=== PATIENT | female | born 1960 | race Caucasian/White ===

== ENCOUNTER 2016-11-18 10:01 | Inpatient (IN) | payer OTHER ==
--- NOTE | 2016-11-18 06:45 | PDHPUP ---
History & Physical Update H&P update statement: This history and physical update is based on an assessment of the patient which was completed after admission or registration (within 24 hours), but prior to the surgery/procedure. H&P update: H&P reviewed & patient examined, no change in patient's condition since H&P completed
[2016-11-18] MEDS ORDERED: ceFAZolin 2 GM/DEXTROSE 100 ML IV ONE (10:22)
[2016-11-18] MEDS ORDERED: LIDOCAINE 1% 2 ML INJ ONE (10:37)
[2016-11-18] MEDS ORDERED: MIDAZOLAM 2 MG/2 ML VIAL IVP ONE ×2 (10:37→10:45)
--- NOTE | 2016-11-18 10:37 | PDANEPAE ---
ANE History of Present Illness 56 year old female presents for TLIF. ANE Past Medical History - Cardiovascular History Hx Hypertension: Yes Hx Arrhythmias: No Hx Chest Pain: No Hx Coronary Artery / Peripheral Vascular Disease: No Hx CHF / Valvular Disease: No Hx Palpitations: No Cardiovascular History Comment: MEDICATION INDUCED HTN. - Pulmonary History Hx COPD: No Hx Asthma/Reactive Airway Disease: No Hx Recent Upper Respiratory Infection: No Hx Oxygen in Use at Home: No Hx Sleep Apnea: Yes Sleep Apnea Screening Result - Last Documented: Positive Pulmonary History Comment: CPAP WITHOUT 02 BLEED - Neurologic History Hx Cerebrovascular Accident: No Hx Seizures: No Hx Dementia: No - Endocrine History Hx Diabetes: No Hypothyroid: No Hyperthyroid: No Obesity: moderate - Renal History Hx Renal Disorders: No - Liver History Hx Hepatic Disorders: No - Neurological & Psychiatric Hx Hx Neurological and Psychiatric Disorders: Yes Neurological / Psychiatric History Comment: DEPRESSION, ANXIETY - Cancer History Hx Cancer: No - Congenital Disorder History Hx Congenital Disorders: No - GI History GERD: no Hx Gastrointestinal Disorders: No Gastrointestinal History Comment: OPIATE INDUCED CONSTIPATION - Other Health History Other Health History: BRUISES EASILY - Chronic Pain History Chronic Pain: Yes (BOTH KNEES, PINKY FINGER ON RIGHT) - Surgical History Prior Surgeries: NERVE ABLATION, COLONOSCOPY,. SCOPE WITH BIOPSY. ANE Review of Systems Review of systems is: negative Review of Systems: - Exercise capacity Exercise capacity: >=4 METS METS (RN): 4 METS ANE Patient History - Allergies Allergies/Adverse Reactions: No Known Allergies Allergy (Unverified 11/03/16 14:30) - Home Medications Home medications: home medication list seen and reviewed Home Medications: Acetamn/Diphenhydramine 500/25 [Tylenol PM (*)] 2 each PO HS 11/03/16 [Last Taken 11/17/16] Calcium Carbonate/Vitamin D3 [CALCIUM 600 + VIT D TABLET] 1 each PO BID [Last Taken 11/12/16] DULoxetine [Cymbalta 60 MG (*)] 60 mg PO TID 11/03/16 [Last Taken 11/18/16 07:20 ] Glucosamine/Chondroitin [Glucosamine/Chondroitin (*)] 1 each PO BID 11/03/16 [ Last Taken 11/12/16] Ibuprofen [Motrin (*)] 800 mg PO TID PRN 11/03/16 [Last Taken 11/12/16] Levothyroxine [Synthroid 50 mcg (*)] 50 mcg PO DAILY06 11/03/16 [Last Taken 07:20] Lisinopril [Zestril 10 mg (*)] 10 mg PO DAILY 11/03/16 [Last Taken 11/17/16] Multivitamins [Multivitamin (*)] 1 each PO DAILY 11/03/16 [Last Taken 11/12/16] RX: Herbals/Supplements -Info Only 1 ea PO DAILY 11/03/16 [Last Taken 11/12/16] Vitamin B Complex [B Complex] 1 each PO DAILY 11/03/16 [Last Taken 11/12/16] oxyCODONE CR [Oxycontin] 20 mg PO BID 11/03/16 [Last Taken 11/18/16 07:20] oxyCODONE/APAP 5/325 [Percocet 5/325 (*)] 1 tab PO TID PRN 11/03/16 [Last Taken 11/18/16 07:20] - NPO status NPO Status: no food or drink >8 hours - Anes Hx Anes Hx: no prior problems - Smoking Hx Smoking Status: Never smoked - Alcohol Use Alcohol Use: Rarely - Family Anes Hx Family Anes Hx: neg - N/A Family Hx Anesthesia Complications: MOTHER WITH EMPHYSEMA, HARD TO WAKE UP. ANE Labs/Vital Signs - Vital Signs Vital Signs: reviewed preoperatively; see RN documention for details Height: 157.48 cm Weight: 79.379 kg ANE Physical Exam - Airway Neck exam: FROM Mallampati Score: Class 2 Mouth exam: dentures - Pulmonary Pulmonary: no respiratory distress - Cardiovascular Cardiovascular: regular rate and rhythym - ASA Status ASA Status: III ANE Anesthesia Plan Anesthesia Plan: general endotracheal anesthesia Total IV Anesthesia: No
[2016-11-18] MEDS ORDERED: LIDOCAINE 1% 2 ML INJ ID PRN (10:39)
[2016-11-18] MEDS ORDERED: LR 1,000 ML IV ONE (10:39)
[2016-11-18] MEDS ORDERED: BISACODYL 10 MG SUPP PR PRN (11:22)
[2016-11-18] MEDS ORDERED: MAGNESIUM HYDROXIDE 30 ML UDCUP PO PRN (11:22)
[2016-11-18] MEDS ORDERED: ACETAMINOPHEN 325 MG TAB PO PRN (11:22)
[2016-11-18] MEDS ORDERED: LACTULOSE 20 GM/30 ML UDCUP PO PRN (11:22)
[2016-11-18] MEDS ORDERED: ONDANSETRON DISINTEGRATING 4 MG TAB PO PRN (11:22)
[2016-11-18] MEDS ORDERED: diphenhydrAMINE 25 MG CAP PO PRN (11:22)
[2016-11-18] MEDS ORDERED: ONDANSETRON 4 MG/2 ML VIAL IVP PRN ×2 (11:22→14:31)
[2016-11-18] MEDS ORDERED: NALOXONE HCL 0.4 MG/ML INJ IVP PRN ×2 (11:22→14:31)
[2016-11-18] MEDS ORDERED: CHLORHEXIDINE GLUC HIBICLENS 118 ML BTL TP ONE (11:31)
[2016-11-18] MEDS ORDERED: THROMBIN (BOVINE) 5,000 UNIT VIAL TP ONE (11:32)
[2016-11-18] MEDS ORDERED: BUPIVACAINE 0.25% 30 ML SDV ONE (11:32)
[2016-11-18] MEDS ORDERED: BACITRACIN 50,000 UNITS/10 ML SYR IRR ONE (11:33)
[2016-11-18] MEDS ORDERED: fentaNYL 100 MCG/2 ML INJ ONE ×3 (11:37→18:05)
[2016-11-18] MEDS ORDERED: PROPOFOL/EMULSION 500 MG/50 ML BOTTLE IV ONE ×3 (11:37→14:37)
[2016-11-18] MEDS ORDERED: PROPOFOL 200 MG/20 ML VIAL ONE (11:37)
[2016-11-18] MEDS ORDERED: LIDOCAINE 2% 5 ML SDV ONE (11:51)
[2016-11-18] MEDS ORDERED: ROCURONIUM 50 MG/5 ML VIAL ONE (11:51)
[2016-11-18] MEDS ORDERED: KETAMINE 100 MG/10 ML SYR ONE (12:11)
[2016-11-18] MEDS ORDERED: DEXAMETHASONE 4 MG/ML VIAL ONE (12:13)
[2016-11-18] MEDS ORDERED: HYDROmorphONE/DILAUDID 2 MG/ML INJ ONE (14:23)
[2016-11-18] MEDS ORDERED: OXYCODONE/APAP 5/325 TAB PO PRN (14:31)
[2016-11-18] MEDS ORDERED: LR 500 ML IV PRN (14:31)
[2016-11-18] MEDS ORDERED: LABETALOL HCL 5 MG/ML 20 ML MDV ONE (15:00)
[2016-11-18] MEDS ORDERED: ONDANSETRON 4 MG/2 ML VIAL ONE (16:25)
[2016-11-18] MEDS ORDERED: SUGAMMADEX SODIUM 200 MG/2 ML VIAL IVP ONE (16:34)
--- NOTE | 2016-11-18 17:07 | SOAPPROG ---
SOAP Progress Note Assessment/Plan: Post Op Visit: S: Awake and alert. PT with expected lower back pain O: AFVSS/PERRLA/EOMI no droop CN 2-12 grossly intact +lt touch 5/5 BUE/BLE = CDI MARYJANE in place A/P: 56 yo female that is s/p TLIF at L3/4 and L4/5 -orders in place -call with any questions or concerns -pt seen by Dr Saez as well -orders in place -brace when out of bed -xrays in am 11/18/16 17:01 Objective: Vital Signs Temp Pulse Resp BP Pulse Ox 36.6 C 81 16 131/88 H 95 11/18/16 10:22 11/18/16 10:22 11/18/16 10:22 11/18/16 10:22 11/18/16 10:22 ICD10 Worksheet Patient Problems: Problems Problem Status Onset Arthrodesis status Acute Lumbago Acute Lumbago with sciatica Acute Lumbar radicular pain Acute Lumbar stenosis Acute - ICD10 Problem Qualifiers (1) Lumbar stenosis (2) Lumbar radicular pain (3) Lumbago Qualifiers: Chronicity: unspecified Back pain laterality: bilateral Sciatica presence : with sciatica Sciatica laterality: sciatica of right side Qualified Code(s ): M54.41 - Lumbago with sciatica, right side (4) Lumbago with sciatica Qualifiers: Chronicity: unspecified Back pain laterality: bilateral Sciatica laterality: sciatica of right side Qualified Code(s): M54.41 - Lumbago with sciatica, right side (5) Arthrodesis status
[2016-11-18] MEDS ORDERED: DIAZEPAM 10 MG/2 ML SYR ONE (17:18)
[2016-11-18] MEDS: fentaNYL 100 MCG/2 ML INJ IVP PRN ×4 (17:20→18:39)
[2016-11-18] MEDS: DIAZEPAM 10 MG/2 ML SYR IVP PRN ×2 (17:24→17:51)
[2016-11-18] MEDS ORDERED: HYDROmorphONE/DILAUDID 1 MG/ML INJ ONE ×2 (18:13→18:53)
[2016-11-18] MEDS: HYDROmorphONE/DILAUDID 1 MG/ML INJ IVP PRN ×5 (18:17→19:45)
[2016-11-18] MEDS ORDERED: OXYCODONE/APAP 5/325 TAB ONE (19:02)
--- NOTE | 2016-11-18 20:05 | POSTANESTH ---
Post Anesthetic Evaluation Cardiovascular Status: Normal, Stable, Similar to Pre-Op Cond Respiratory Status: Normal, Stable, Similar to Pre-op Cond. Level of Consciousness/Mental Status: Can Participate in Eval, Alert and Oriented Pain Control: Adequate, Prn Tx Ordered Nausea/Vomiting Control: Adequate, Prn Tx Ordered Complications Possibly Related to Anesthesia: None Noted
[2016-11-18] MEDS: HYDROmorphONE/DILAUDID 6 MG/30 ML PCA IV PRN (21:32)
[2016-11-18] MEDS: POLYETHYLENE GLYCOL 3350 17 GM PKT PO PRN (21:33)
[2016-11-18] MEDS: METHOCARBAMOL 750 MG in NS 50 ML IV SCH (21:33)
[2016-11-18] MEDS: ACETAMN/DIPHENHYDRAMINE 500/25MG TAB PO SCH (21:33)
[2016-11-18] MEDS: FAMOTIDINE 20 MG TAB PO SCH (21:34)
[2016-11-18] MEDS: DULoxetine 60 MG CAP PO SCH (21:34)
[2016-11-18] MEDS: SENNOSIDES/DOCUSATE SODIUM TAB PO SCH (21:34)
[2016-11-18] MEDS: NS 1,000 ML IV SCH (21:43)
[2016-11-18] MEDS: oxyCODONE IR 5 MG TAB PO PRN (23:21)
[2016-11-19] MEDS: ceFAZolin 2 GM/DEXTROSE 100 ML IV SCH ×2 (00:50→05:46)
[2016-11-19] MEDS: DIAZEPAM 5 MG TAB PO PRN ×3 (02:42→16:53)
--- NOTE | 2016-11-19 03:42 | GOP ---
[f rep st] OPERATIVE REPORT DATE OF OPERATION: 11/18/2016 SURGEON: Peter Saez MD 5TH GRADE TEACHER: Ap Reinoso PA-C. PREOPERATIVE DIAGNOSIS: 1. Lumbar scoliosis with severe right foraminal stenosis, L3-4, severe left foraminal stenosis, L4-5 , moderately severe right foraminal stenosis, L4-5. 2. Lumbar spondylosis. 3. Lumbar degenerative disk disease, L3-4, L4-5. 4. There were also other multilevel findings of lumbar spine. She had right L3 radiculopathy and le ft L4 radiculopathy, axial low back pain, lumbar degenerative disk disease. POSTOPERATIVE DIAGNOSIS: 1. Lumbar scoliosis with severe right foraminal stenosis, L3-4, severe left foraminal stenosis, L4-5 , moderately severe right foraminal stenosis, L4-5. 2. Lumbar spondylosis. 3. Lumbar degenerative disk disease, L3-4, L4-5. 4. There were also other multilevel findings of lumbar spine. She had right L3 radiculopathy and le ft L4 radiculopathy, axial low back pain, lumbar degenerative disk disease. PROCEDURE PERFORMED: 1. Posterolateral and intervertebral arthrodesis, L3-4, L4-5 (44962, 93327). 2. Segmental spinal instrumentation, L3-L4-L5 (00885). 3. Placement of biomechanical intervertebral device, L3-4, L4-5 (09923). 4. Microscope, spinal stereotaxy. FINDINGS: ESTIMATED BLOOD LOSS: 250 cc. INDICATIONS: The patient is a 56-year-old female with terrible axial low back pain and radiating valeria n into the right leg in an L3-type distribution, as well as some radiating pain on the left in an L4- type distribution, but the right was greater than the left. She had a degenerative scoliotic curve w ith incompetent facet joints at the L4-5 level. She also had a terrible degenerative disk disease an d a degenerative scoliotic curve at L3-4, with compression of the exiting L3 nerve root in the neural foramen at that level. I suggested a 2-level TLIF with decompression on the right at L3-4 and the l eft at L4-5. She had other findings in the lumbar spine including a small right paracentral disk her niation at L5-S1 that was noncompressive, and she understood that in time she may develop the need fo r additional surgery in the future. The concept of adjacent segment disease was discussed. She knew there was a risk of nerve injury, spinal fluid leak, pseudoarthrosis, as well as the possibility of surgery that failed to alleviate her pain. She knew there were small risks of infection and a spinal fluid leak. She wanted to proceed, despite these risks. DESCRIPTION OF PROCEDURE: The patient was taken to the operating room, placed in supine position. G eneral anesthesia was begun. She was flipped prone on the Denis table. Care was taken to pad all points of contact. Her back was sterilely prepped and draped in the usual fashion. A localizing x-r ay was taken. We made a midline incision from the spinous process of L2 down to the spinous process of L5. The subcutaneous tissue was dissected using Bovie cautery down to the fascia and a subperiost eal dissection was made down the lamina of L2, 3, 4, and 5. A localizing x-ray was taken. We denude d the bilateral facet joints at L3-4, L4-5. We preserved the L2-3 facet joints. We attached the Gm [facility] reference frame and using frameless Stealth stereotaxy, we placed pedicle screws bilaterally at L3, L4, and L5. They all stimulated at 20 milliamps or greater. We performed an O-arm spin of the l eft L5 pedicle screw. I had an excellent entry point, but then the screw existed at the distal porti on of the pedicle of the lateral vertebral body, and we elected to replace this screw. We simply rem heaven it, shot a pre-replacement AP x-ray and a post-replacement AP x-ray. We began the screw in a sl ightly medial position and using frameless Stealth stereotaxy, we placed the screw in the left L5 ped icle and that stimulated at 20 milliamps. There was excellent bony purchase. A final x-ray was take n and the screw was in excellent position. We then placed an 80 mm derik down on the left and chose a 70 mm derik on the right. We distracted on the right at L3-4 and on the left at L4-5. We reduced her scoliotic curve. We final tightened the cap screws according to company specification. We removed a ll the soft tissue of the bone at L3, L4, and L5. We then harvested the L4 spinous process for autol ogous grafting purposes and the inferior L3 spinous process for autologous grafting purposes. Under the operating microscope, we drilled a right hemilaminectomy of L3 and a left hemilaminectomy of L4. We harvested this bone for autologous grafting purposes. We opened the posterior longitudinal ligam ent and under the microscope, we decompressed the lateral thecal sac at L4-5 on the left-hand side an d performed a complete left L4-5 facetectomy, decompressing the exiting L4 nerve root at that level. We worked our way rostrally to the L3-4 level, where we performed a right hemilaminectomy of L3 and then performed a complete right L3-4 facetectomy and decompressed the exiting L3 nerve root at that l evel. We then incised the L4-5 disk from the left-hand side, removed the disk. The cartilaginous en dplates roughened the subchondral bone to create arthrodesis at that level, and then chose a 7 x 23 m m device for L4-5. We then did likewise from the right at L3-4, where we incised the disk, removed t he disk and the cartilaginous endplates. We roughened the subchondral bone to create arthrodesis at that level. Here, too, we chose a 7 x 23 mm device and under fluoroscopic guidance, we put _ devices into the disk spaces at L3-4, L4-5 along with a lot of bone autograft, as well as BMP spong e. We used a grand total of 4 mg of BMP for the entire surgery. We placed 2 mg into the ventral por tion of the spine and 2 mg posterolaterally. We decorticated all our remaining bone posterolaterally bilaterally. We had relaxed our distraction between L3 and L4 to increase lordosis at that level. We final tightened the cap screws according to company specification, finished our decortication, katia zeyad bone posterolaterally bilaterally at L3-4 as well as BMP, and a subfascial drain. We then closed the incision in multiple layers using Vicryl sutures. A running PDS was placed in the skin itself. There were no complications. The patient tolerated the procedure. COMPLICATIONS: None. INSTRUMENTATION USED: Gopeersra 5.5 mm system with 7 x 23 mm Elevate cage. Used an 80 mm derik on the left and a 70 mm derik on the right. /[id number]/MODL
[2016-11-19] MEDS: oxyCODONE IR 5 MG TAB PO PRN ×4 (03:51→20:05)
[2016-11-19 05:37] LABS: % IMMATURE GRANULYOCYTES 0.6 % (0.0-1.1); ABSOLUTE IMMATURE GRANULOCYTES 0.06 10^3/uL (0.00-0.10); ADD DIFF? NO; ADD MORPH? NO; ADD SCAN? NO; ATYPICAL LYMPHOCYTE FLAG 10 (0-99); FRAGMENT RBC FLAG 0 (0-99); HEMATOCRIT 33.9 % (38.0-47.0); HEMOGLOBIN 11.2 g/dL (12.6-16.3); LEFT SHIFT FLG 10 (0-99); LIPEMIA HEMOLYSIS FLAG 80 (0-99); MEAN CELL HEMOGLOBIN 32.1 pg (27.9-34.1); MEAN CELL VOLUME 97.1 fL (81.5-99.8); PLATELET CLUMPS FLAG 10 (0-99); PLATELET COUNT 301 10^3/uL (150-400); RED BLOOD CELL COUNT 3.49 10^6/uL (4.18-5.33); RED CELL DISTRIBUTION WIDTH 12.3 % (11.5-15.2)
[2016-11-19] MEDS: HYDROmorphONE/DILAUDID 6 MG/30 ML PCA IV PRN ×2 (05:40→19:39)
[2016-11-19] MEDS: LEVOTHYROXINE 50 MCG TAB PO SCH (05:47)
[2016-11-19] MEDS: METHOCARBAMOL 750 MG in NS 50 ML IV SCH (05:47)
[2016-11-19 05:51] LABS: ANION GAP 10 mEq/L (8-16); CALCIUM 8.9 mg/dL (8.5-10.4); CARBON DIOXIDE 24 mEq/l (22-31); CHLORIDE 105 mEq/L (97-110); CREATININE 0.6 mg/dL (0.6-1.0); GLOMERULAR FILTRATION RATE > 60; GLUCOSE 111 mg/dL (70-100); POTASSIUM 4.1 mEq/L (3.5-5.2); SODIUM 139 mEq/L (134-144)
[2016-11-19] MEDS ORDERED: PHARMACY PAIN CONSULT 1 EA MISC SCH (08:00)
--- NOTE | 2016-11-19 08:04 | NEUSURGPN ---
Date of Surgery: 11/18/16 Post Op Day: 1 Assessment/Plan: Assessment: 56 yo female that is s/p TLIF at L3/4 and L4/5 POD #1 Plan: -s/p TLIF: pt with expected lower back pain, leg a bit better -pt with continued pain issues -on MANAGEMENT DEVELOPMENT SPECIALIST, increased Oxycontin to TID, continue with Robaxin/Valium -pharmacy pain consult ordered -brace when out of bed -MARYJANE to be removed this am -CDI -orders in place -call with any questions or concerns -pt seen by Dr Saez as well -xrays pending this am -rash under panus-started on lotrimin cream 11/18/16 17:01 Subjective: Awake and alert. Pt with continued back pain. No urbano/neck/chest/abd or gu complaints. She has a rash under her panus Objective: AFVSS/PERRLA/EOMI no droop CN 2-12 grossly intact +lt touch 5/5 BUE/BLE = CDI MARYJANE in place-to be removed Neuro Check Frequency: per routine Urinary Catheter in Place: No - Physician Discussed Patient with Dr.: Se Patient Seen by : Se Neurosurgery Physical Exam - Vitals, I&O, Labs I and O 11/18/16 11/19/16 11/20/16 05:59 05:59 05:59 Intake Total 2225 Output Total 3615 Balance -1390 Weight 79.379 kg Intake: Oral (ml) 725 IV Intake (ml) 1500 Output: Urine (ml) 3325 Catheter 3325 MARYJANE Drain Output (ml) 290 Back Denis Novak 290 Other: Intake Quantity Yes Sufficient Vital Signs Temp Pulse Resp BP Pulse Ox 37.1 C 95 16 111/79 93 11/19/16 06:00 11/19/16 06:00 11/19/16 06:00 11/19/16 06:00 11/19/16 06:00 Laboratory Results 11/19/16 05:13 11/19/16 05:13 ICD10 Worksheet Patient Problems: Problems Problem Status Onset Arthrodesis status Acute Lumbago Acute Lumbago with sciatica Acute Lumbar radicular pain Acute Lumbar stenosis Acute - ICD10 Problem Qualifiers (1) Lumbar stenosis (2) Lumbar radicular pain (3) Lumbago Qualifiers: Chronicity: unspecified Back pain laterality: bilateral Sciatica presence : with sciatica Sciatica laterality: sciatica of right side Qualified Code(s ): M54.41 - Lumbago with sciatica, right side (4) Lumbago with sciatica Qualifiers: Chronicity: unspecified Back pain laterality: bilateral Sciatica laterality: sciatica of right side Qualified Code(s): M54.41 - Lumbago with sciatica, right side (5) Arthrodesis status
[2016-11-19] MEDS ORDERED: ACETAMINOPHEN 325 MG TAB PO SCH (08:45)
[2016-11-19] MEDS: SENNOSIDES/DOCUSATE SODIUM TAB PO SCH ×2 (08:56→20:06)
[2016-11-19] MEDS: LISINOPRIL 10 MG TAB PO SCH (08:56)
[2016-11-19] MEDS: DULoxetine 60 MG CAP PO SCH ×2 (08:57→20:06)
[2016-11-19] MEDS: FAMOTIDINE 20 MG TAB PO SCH ×2 (08:57→20:05)
[2016-11-19] MEDS: CLOTRIMAZOLE 1% 15 GM CRTUBE TP SCH ×3 (09:00→22:56)
[2016-11-19] MEDS: ACETAMINOPHEN 325 MG TAB PO SCH ×3 (09:15→16:52)
[2016-11-19] MEDS: METHOCARBAMOL 750 MG TAB PO PRN ×2 (12:13→18:19)
[2016-11-19] MEDS: NS 1,000 ML IV SCH (12:21)
--- NOTE | 2016-11-19 14:58 | ASMTCMCOM ---
CM Note CM Note Notes: OT rec home, PT rec home vs. 24/hr sup. Anticipate pt will d/c when medically stable w suprtvision/support of husb. No CM d/c needs identified at this time CM available for changes/needs. Date Signed: 11/19/2016 02:57 PM Electronically Signed By:DANIEL Nice
[2016-11-19] MEDS: ACETAMN/DIPHENHYDRAMINE 500/25MG TAB PO SCH (20:06)
[2016-11-20] MEDS: oxyCODONE IR 5 MG TAB PO PRN ×6 (00:18→20:13)
[2016-11-20] MEDS: DIAZEPAM 5 MG TAB PO PRN ×3 (00:19→17:57)
[2016-11-20] MEDS: HYDROmorphONE/DILAUDID 6 MG/30 ML PCA IV PRN ×3 (02:14→16:03)
[2016-11-20] MEDS: METHOCARBAMOL 750 MG TAB PO PRN (04:15)
[2016-11-20] MEDS: LEVOTHYROXINE 50 MCG TAB PO SCH (05:17)
[2016-11-20] MEDS: ACETAMINOPHEN 325 MG TAB PO SCH ×3 (07:42→16:05)
[2016-11-20] MEDS: FAMOTIDINE 20 MG TAB PO SCH ×2 (08:08→20:13)
[2016-11-20] MEDS: SENNOSIDES/DOCUSATE SODIUM TAB PO SCH ×2 (08:08→20:14)
[2016-11-20] MEDS: DULoxetine 60 MG CAP PO SCH ×2 (08:09→20:12)
--- NOTE | 2016-11-20 08:36 | NEUSURGPN ---
Assessment/Plan: Assessment: 56 yo female that is s/p TLIF at L3/4 and L4/5 POD #2 Plan: -s/p TLIF: pt with expected lower back pain, leg a bit better -pt with continued pain issues -on SAP ENTERPRISE PORTAL CONSULTANT, increased Oxycontin to TID, continue with Robaxin/Valium - add ice packs -pharmacy pain consult was ordered -brace when out of bed -call with any questions or concerns -xrays pending this am -rash under pannus- was started on lotrimin cream -Pt d/w Dr Saez Subjective: Pt resting in bed, doing better with the new bed she got yesterday. C/o incisional pain and some lesser pain right anterior thigh Objective: NAD VSS MAEx4 Motor 5/5 BUE/BLE +LT Urinary Catheter in Place: No - Physician Discussed Patient with : Se Neurosurgery Physical Exam - Vitals, I&O, Labs I and O 11/19/16 11/20/16 11/21/16 05:59 05:59 05:59 Intake Total 2225 200 Output Total 3615 85 Balance -1390 115 Weight 79.379 kg Intake: Oral (ml) 725 200 IV Intake (ml) 1500 Output: Urine (ml) 3325 Catheter 3325 MARYJANE Drain Output (ml) 290 85 Back Denis Novak 290 85 Other: Intake Quantity Yes Yes Sufficient Output Comment Toilet pt describes stool as "greasy" Number of Voids Toilet 2 Number of Stools Toilet 1 Vital Signs Temp Pulse Resp BP Pulse Ox 37.2 C 107 H 16 104/61 97 11/20/16 08:00 11/20/16 08:00 11/20/16 08:00 11/20/16 08:00 11/20/16 08:00 Laboratory Results 11/19/16 05:13 11/19/16 05:13 ICD10 Worksheet Patient Problems: Problems Problem Status Onset Arthrodesis status Acute Lumbago Acute Lumbago with sciatica Acute Lumbar radicular pain Acute Lumbar stenosis Acute
[2016-11-20] MEDS: LISINOPRIL 10 MG TAB PO SCH (08:46)
[2016-11-20] MEDS ORDERED: FLU VACC QS 2017-18 (3YR+)/PF 0.5 ML SYR (FLUARIX QUAD) IM ONE (09:52)
[2016-11-20] MEDS: CLOTRIMAZOLE 1% 15 GM CRTUBE TP SCH ×2 (10:47→20:19)
[2016-11-20] MEDS: METHOCARBAMOL 750 MG TAB PO SCH ×2 (17:58→20:13)
[2016-11-20] MEDS: ACETAMN/DIPHENHYDRAMINE 500/25MG TAB PO SCH (20:13)
[2016-11-21] MEDS: oxyCODONE IR 5 MG TAB PO PRN ×7 (00:15→22:42)
[2016-11-21] MEDS: HYDROmorphONE/DILAUDID 6 MG/30 ML PCA IV PRN (01:12)
[2016-11-21] MEDS: METHOCARBAMOL 750 MG TAB PO SCH ×4 (05:10→20:09)
[2016-11-21] MEDS: LEVOTHYROXINE 50 MCG TAB PO SCH (05:10)
[2016-11-21] MEDS: NS 1,000 ML IV SCH (05:11)
[2016-11-21] MEDS: POLYETHYLENE GLYCOL 3350 17 GM PKT PO PRN (08:09)
[2016-11-21] MEDS: ENOXAPARIN 40 MG/0.4 ML SYR SC SCH (08:10)
[2016-11-21] MEDS: ACETAMINOPHEN 325 MG TAB PO SCH ×3 (08:11→15:53)
[2016-11-21] MEDS: FAMOTIDINE 20 MG TAB PO SCH ×2 (08:12→20:10)
[2016-11-21] MEDS: SENNOSIDES/DOCUSATE SODIUM TAB PO SCH ×2 (08:12→20:09)
[2016-11-21] MEDS: DULoxetine 60 MG CAP PO SCH ×2 (08:12→20:47)
[2016-11-21] MEDS: LISINOPRIL 10 MG TAB PO SCH (08:13)
[2016-11-21] MEDS: CLOTRIMAZOLE 1% 15 GM CRTUBE TP SCH ×2 (09:00→20:50)
--- NOTE | 2016-11-21 13:09 | NEUSURGPN ---
Assessment/Plan: Assessment: 56 yo female that is s/p TLIF at L3/4 and L4/5 POD #3 Plan: -s/p TLIF: Doing ok, making slow progress and having difficult time with pain control. -pt with continued pain issues- Restarted on QUANTITATIVE RESEARCH ANALYST yesterday but is very somnolent from this. Will stop Dilaudid QUANTITATIVE RESEARCH ANALYST and try Oxycodone every 3 hours instead to help with better control. -pharmacy pain consulted to help with pain control as well -brace when out of bed -PT/OT- Needs encouragement and to be OOB 3 times a day at least. 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 Will continue to watch for now. -Pt d/w Dr Saez Subjective: Pt resting in bed. States she is very sleepy on QUANTITATIVE RESEARCH ANALYST. Feels her legs are "weak" when she is up walking. Objective: NAD VSS MAEx4 Motor 5/5 BUE/BLE +LT Incision c/d/i - Physician Discussed Patient with : Se Neurosurgery Physical Exam - Vitals, I&O, Labs I and O 11/20/16 11/21/16 11/22/16 05:59 05:59 05:59 Intake Total 200 601.98 Output Total 85 Balance 115 601.98 Intake: Oral (ml) 200 IV Infused (ml) 601.98 HYDROmorphone HCL See 1.98 Protocol IV PRN PRN Rx#: [id number] Ns 1,000 ml @ 75 mls/hr 600 IV CONT NEFTALI Rx#: [id number] Output: MARYJANE Drain Output (ml) 85 Back Denis Novak 85 Other: Intake Quantity Yes Sufficient Output Comment Toilet pt describes stool as "greasy" Number of Voids Toilet 2 1 4 Number of Stools Toilet 1 1 Vital Signs Temp Pulse Resp BP Pulse Ox 36.4 C 94 17 115/63 95 11/21/16 10:11/21/16 10:11/21/16 10:17 10:00 11/21/16 10:00 Laboratory Results 11/19/16 05:13 11/19/16 05:13 ICD10 Worksheet Patient Problems: Problems Problem Status Onset Arthrodesis status Acute Lumbago Acute Lumbago with sciatica Acute Lumbar radicular pain Acute Lumbar stenosis Acute
[2016-11-21] MEDS: ACETAMN/DIPHENHYDRAMINE 500/25MG TAB PO SCH (20:09)
[2016-11-21] MEDS: DIAZEPAM 5 MG TAB PO PRN (20:18)
[2016-11-22] MEDS: oxyCODONE IR 5 MG TAB PO PRN ×5 (02:29→15:32)
[2016-11-22] MEDS: LEVOTHYROXINE 50 MCG TAB PO SCH (05:40)
[2016-11-22] MEDS: METHOCARBAMOL 750 MG TAB PO SCH ×3 (05:40→15:43)
[2016-11-22 08:23] VITALS: BP 121/72; PULSE 101; RESP 19; TEMP 98.2; O2SAT 97
[2016-11-22] MEDS: ACETAMINOPHEN 325 MG TAB PO SCH ×3 (08:40→15:43)
[2016-11-22] MEDS: SENNOSIDES/DOCUSATE SODIUM TAB PO SCH (08:44)
[2016-11-22] MEDS: ENOXAPARIN 40 MG/0.4 ML SYR SC SCH (08:44)
[2016-11-22] MEDS: FAMOTIDINE 20 MG TAB PO SCH (08:45)
[2016-11-22] MEDS: DULoxetine 60 MG CAP PO SCH (08:45)
[2016-11-22] MEDS: LISINOPRIL 10 MG TAB PO SCH (08:46)
[2016-11-22] MEDS: POLYETHYLENE GLYCOL 3350 17 GM PKT PO PRN (08:49)
[2016-11-22] MEDS: CLOTRIMAZOLE 1% 15 GM CRTUBE TP SCH (11:37)
--- NOTE | 2016-11-22 11:43 | NEUSURGPN ---
Assessment/Plan: Assessment: 56 yo female that is s/p TLIF at L3/4 and L4/5 POD #4 Plan: -s/p TLIF: Doing better this morning. Was up with PT in hallway walking yesterday. Pain well controlled on current regimen -pt with continued pain issues- Off of LEAD MILITARY ANALYST. Doing well on Oxycontin, Oxy IR, Tylenol, Robaxin, Valium(at night) -pharmacy pain consulted to help with pain control as well- appreciate their assistance -brace when out of bed -PT/OT- Needs encouragement and to be OOB 3 times a day at least. Suspect Deconditioning -call with any questions or concerns -xrays postop show good hardware placement -rash under pannus- was started on lotrimin cream -Hx of MRSA rash on face and has small area of scab around nares- most likely from ET tube, no blisters or vesicles, non-painful, does not itch. Will continue to watch for now. -Dipso- Once cleared by therapies can go home anytime. -Pt d/w Dr Saez Subjective: Pt resting in bed but was up walking yesterday in hallway to the end and back twice. Improving postop pain slowly. Objective: NAD VSS MAEx4 Motor 5/5 BUE/BLE +LT Incision c/d/i - Physician Discussed Patient with : Se Neurosurgery Physical Exam - Vitals, I&O, Labs I and O 11/21/16 11/22/16 11/23/16 05:59 05:59 05:59 Intake Total 601.98 1600 Balance 601.98 1600 Intake: Oral (ml) 1600 IV Infused (ml) 601.98 HYDROmorphone HCL See 1.98 Protocol IV PRN PRN Rx#: [id number] Ns 1,000 ml @ 75 mls/hr 600 IV CONT NEFTALI Rx#: [id number] Other: Intake Quantity Yes Sufficient Number of Voids Toilet 1 3 Number of Stools Toilet 1 Vital Signs Temp Pulse Resp BP Pulse Ox 36.8 C 101 H 19 121/72 H 97 11/22/16 08:10 11/22/16 08:10 11/22/16 08:10 11/22/16 08:10 11/22/16 08:10 Laboratory Results 11/19/16 05:13 11/19/16 05:13 ICD10 Worksheet Patient Problems: Problems Problem Status Onset Arthrodesis status Acute Lumbago Acute Lumbago with sciatica Acute Lumbar radicular pain Acute Lumbar stenosis Acute
--- NOTE | 2016-11-22 15:18 | PDIAF ---
- Diagnosis Code Status: Full Code - Medication Management Discharge Medications: Medications to Continue on Transfer Acetamn/Diphenhydramine 500/25 [Tylenol PM (*)] 2 each PO HS 11/03/16 [Last Taken 11/17/16] Calcium Carbonate/Vitamin D3 [CALCIUM 600 + VIT D TABLET] 1 each PO BID [Last Taken 11/12/16] DULoxetine [Cymbalta 60 MG (*)] 60 mg PO BID 11/03/16 [Last Taken 11/18/16 07:20 ] Glucosamine/Chondroitin [Glucosamine/Chondroitin (*)] 1 each PO BID 11/03/16 [ Last Taken 11/12/16] Herbals/Supplements -Info Only 1 ea PO DAILY 11/03/16 [Last Taken 11/12/16] Levothyroxine [Synthroid 50 mcg (*)] 50 mcg PO DAILY06 11/03/16 [Last Taken 07:20] Lisinopril [Zestril 10 mg (*)] 10 mg PO DAILY 11/03/16 [Last Taken 11/17/16] Multivitamins [Multivitamin (*)] 1 each PO DAILY 11/03/16 [Last Taken 11/12/16] Vitamin B Complex [B Complex] 1 each PO DAILY 11/03/16 [Last Taken 11/12/16] Acetaminophen [Tylenol 325mg (*)] 650 mg PO DAILY@0800,1200,1600 tab 11/22/16 [ Last Taken Unknown] Diazepam [Valium 5 MG (*)] 5 mg PO Q6HRS PRN #60 tab 11/22/16 [Last Taken Unknown] Methocarbamol [Robaxin 750 mg (*)] 750 mg PO QID #60 tab 11/22/16 [Last Taken Unknown] Polyethylene Glycol 3350 [Miralax 17 gm (*)] 17 gm PO DAILY PRN pkt 11/22/16 [ Last Taken Unknown] Sennosides/Docusate Sodium [Senokot-S] 1 - 2 tab PO BID tab 11/22/16 [Last Taken Unknown] oxyCODONE CR [Oxycontin] 20 mg PO TID #42 tab 11/22/16 [Last Taken Unknown] oxyCODONE IR [Oxycodone Ir (*)] 5 - 15 mg PO Q3 PRN #90 tab 11/22/16 [Last Taken Unknown] Discharge Medications: Refer to the Discharge Home Medication list for PRN reason. - Orders Services needed: Home Care, Registered Nurse, Physical Therapy Home Care Face to Face: I certify that this patient was under my care and that I had the required [id number] encounter meeting the encounter requirements on the discharge day. My findings support the fact that the patient is homebound as defined in Home Care Face to Face Continued: CMS Chapter 7 Medicare Benefits Manual 30.1.1 , The condition of the patient is such that there exists a normal inability to leave home and consequently, leaving home would require a considerable and taxing effort. Diet Recommendation: no restrictions on diet Diet Texture: Regular Texture Diet Bill Stockings Discontinue Date: may take off once walking 3 times per day for 100 yards each Wound Care Instructions: may get wet in shower, no scrubbing , pat dry with towel no dressing needed may leave steri strips Activity/Weight Bearing Restrictions: No bending at the waist, twisting, or lifting more than 5-10 pounds. Wear your brace at all times when up and out of bed- no need to wear in shower - Follow Up Care Current Providers and Referrals: BEATRIS MANSFIELD MD [Primary Care Provider] - Jam Du MD [Medical Doctor] - follow up in 2 weeks
--- NOTE | 2016-11-22 15:20 | ASMTCMCOM ---
CM Note CM Note Notes: Patient hasbeen discharged. Therapies are recommending HC and patient/ would like those services to come to the home. Patient has Maryanne ins- [facility]. Patient's address: [address] [place] [address]. Her phone # [phone]. 's #[phone]. Date Signed: 11/22/2016 03:20 PM Electronically Signed By:Diana Estrada LCSW
--- NOTE | 2016-11-23 14:15 | ASDISCHSUM ---
Discharge Information Plan Status:Home with Home Health Medically Cleared to Leave:11/22/2016 Discharge Date:11/22/2016 04:11 PM CM D/C Disposition:Home Health Service ADT D/C Disposition:Home, Routine, Self-Care Projected Discharge Date:11/22/2016 04:00 PM Transportation at D/C:Family Discharge Delay Reason: Follow-Up Date:11/22/2016 04:00 PM Discharge Slot: Final Diagnosis:Back Pain- L#-4, L4-5 TLIF Placement Information Patient Contact Information Contact Name:CONCHITA Relationship: Address:[address] City:[place] Alternate Phone: [facility]/Zip Code:[place] [address] Email: Financial Information Financial Class:[facility] Primary Plan Desc:MARYANNE TRUONG O [facility] Primary Plan Number:[id number] Secondary Plan Desc: Secondary Plan Number: Assessment Information [facility] CM Progress Note CM Note CM Note Notes: OT rec home, PT rec home vs. 24/hr sup. Anticipate pt will d/c when medically stable w suprtvision/support of husb. No CM d/c needs identified at this time CM available for changes/needs. Date Signed: 11/19/2016 02:57 PM Electronically Signed By:DANIEL Nice [facility] CM Progress Note CM Note CM Note Notes: Patient hasbeen discharged. Therapies are recommending HC and patient/ would like those services to come to the home. Patient has [facility] has been notified. Patient's address: [address] [place] [address]. Her phone # [phone]. 's #[phone]. Date Signed: 11/22/2016 03:20 PM Electronically Signed By:Diana Estrada [facility] Intervention Information
== END 2016-11-22 16:11 | disposition home or self-care (01) | DRG 458 ==
LOC: F3E 10:01 → F3N 12:17
PROVIDERS: ADMIT Neurological Surgery; ATTEND Neurological Surgery
DX: M41.86 Other forms of scoliosis, lumbar region (principal); M47.26 Other spondylosis with radiculopathy, lumbar region; M51.36 Other intervertebral disc degeneration, lumbar region; I10 Essential (primary) hypertension; G47.30 Sleep apnea, unspecified; F41.8 Other specified anxiety disorders; Z23 Encounter for immunization
CPT/HCPCS: 97116-GP; 97161-GP; 97166-GO; 97530-GP; 97535-GO; C1713; G0008; J0171; J0690; J1100; J1170; J1650; J2250; J2405; J2704; J2800; J3010; J3490